=== PATIENT | male | born 2005 | race Two or more races ===

== ENCOUNTER 2024-06-07 05:37 | Emergency (ER) | payer BC ==
[~2024-06-07] VITALS: Ht 165.1 cm; Wt 59.0 kg
[2024-06-07] MEDS ORDERED: KETOROLAC TROMETHAMINE 10 MG TABLET PO STA (06:12)
[2024-06-07 08:42] LABS: URINE APPEARANCE Clear; URINE BILIRRUBIN Negative (NEGATIVE); URINE BLOOD Negative; URINE COLOR Yellow; URINE GLUCOSE Negative (NEGATIVE); URINE KETONE Trace (NEGATIVE); URINE LEUKOCYTE Negative; URINE NITRATE Negative; URINE PROTEIN Negative (NEGATIVE); URINE UROBILINOGEN 0.2 E.U./dl
[2024-06-07 08:48] LABS: URINE BACTERIA 22.6 uL (0.0-1933); URINE RBC 4.4 uL (0.0-20.8)
[2024-06-07 08:56] LABS: URINE CAST 1.22 uL (0.0-1.40)
== END 2024-06-07 10:58 | disposition home or self-care (01) ==
LOC: ER 05:38 → EMR PED 05:38
PROVIDERS: General Practice
DX: I86.1 Scrotal varices (principal)